=== PATIENT | female | born 1965 | race Caucasian/White ===

== ENCOUNTER → 2021-06-04 | Outpatient (CLI) | payer OTHER ==
--- NOTE | 2021-06-04 17:07 | RAD ---
PQRS Compliance Statement: One or more of the following individualized dose reduction techniques were utilized for this examinat ion: 1. Automated exposure control 2. Adjustment of the mA and/or kV according to patient size 3. Use of iterative reconstruction technique CT NECK SOFT TISSUE WITHOUT CONTRAST 06/04/2021 1:55 PM Indication: Left sided neck fullness. History of breast cancer. COMPARISON: None available. TECHNIQUE: Multiple axial CT images of the neck were obtained without intravenous contrast. Coronal a nd sagittal reformats are provided. FINDINGS: There is a 3 mm groundglass nodule in the left upper lobe (series 2, image 67) favoring infectious/in flammatory etiology. Thyroid gland not visualized. No significant abnormality involving the visualize d portions of the brain parenchyma and posterior fossa. Parotid glands are normal in appearance. Subm andibular glands are intact. Oral cavity, floor of mouth and submental space are normal in appearance within limitations of noncontrast examination. Limited evaluation of mucosal abnormalities can lack of intravenous contrast. Nasopharynx, oropharynx and hypopharynx are normal. Larynx and trachea are i ntact. Bronchial cartilages are normal. No pathologically enlarged cervical lymph nodes. Vascular spa negar are normal. Parapharyngeal fat is preserved. No retropharyngeal lymphadenopathy. Prevertebral sof t tissues are normal. Paravertebral soft tissues are normal. No suspicious osseous abnormality. Denti tion appear intact. Temporomandibular joints are well aligned. Mastoid air cells are well aerated. IMPRESSION: No suspicious laryngeal or pharyngeal mass. No pathologically enlarged cervical lymph nodes. 3 mm groundglass nodule in the left upper lobe. This is likely infectious/inflammatory in etiology. Electronically signed by: Salina Antoine MD (06/04/2021 5:04 PM) [id number]
== END ==
LOC: CT 13:49
PROVIDERS: ATTEND Family Medicine
DX: R22.1 Localized swelling, mass and lump, neck (principal); Z85.3 Personal history of malignant neoplasm of breast
CPT/HCPCS: 70490